=== PATIENT | female | born 1955 | race Two or more races ===

== ENCOUNTER 2024-09-15 10:28 | Emergency (ER) | payer OTHER, SELFPAY ==
[2024-09-15 11:50] VITALS: BP 146/83; PULSE 63; RESP 18; TEMP 36.7; O2SAT 95; BMI 29.5
--- NOTE | 2024-09-15 12:00 | XR_ITS ---
Examination: Lumbar spine 3 views Technique one AP lateral coned lateral lower lumbar spine 3 views Exam date 9: September 15, 2024 1215 hours INDICATIONS: Patient fell 4 days ago with injury to the lower back, lower back pain FINDINGS: Satisfactory alignment lumbar vertebral bodies No lumbar fracture Mild disc narrowing L4-L5 Advanced disc narrowing L5-S1 IMPRESSION: No lumbar fracture
--- NOTE | 2024-09-15 12:00 | XR_ITS ---
Examination: Ribs, right, with PA chest, 5 views Technique: Chest PA, RIBS AP, RPO, LPO, AP coned lower ribs 5 views Exam date and time: September 15, 2024 1207 hours INDICATIONS: Patient fell 4 days ago with injury to the right chest, right rib pain Findings: Mild prominence left ventricle Subsegmental atelectasis left base No pneumothorax Moderate osteopenia Mildly displaced acute fracture right sixth rib anterolaterally IMPRESSION: No pneumothorax Acute fracture right sixth rib
--- NOTE | 2024-09-15 12:00 | XR_ITS ---
Examination: Abdomen AP single view Technique: AP portable supine abdomen, single view Exam date and time: September 15, 1999 25-0 7 hours INDICATIONS: Patient fell 4 days ago with injury of the abdomen, abdomen pain. FINDINGS: Moderate stool throughout the colon No obstruction Lumbar vertebral bodies bones of the pelvis and hips appear intact IMPRESSION: Nonobstructive bowel gas pattern
--- NOTE | 2024-09-15 12:02 | EDRME_ITS ---
Rapid Medical Screening Exam [facility] Arrival date/time: 09/15/24 10:28 Chief Complaint: Fall Vital signs: Vital Signs Temperature 98.1 F 09/15/24 11:50 Pulse Rate 63 09/15/24 11:50 Respiratory Rate 18 09/15/24 11:50 Blood Pressure 146/83 H 09/15/24 11:50 Pulse Oximetry (%) 95 09/15/24 11:50 Oxygen Delivery Method Room Air 09/15/24 11:50 RME Narrative: 69-year-old patient presents emergency department with complaint of right rib, right abdomen, and back pain status post trip and fall 4 days ago. Patient states she tripped over her cat at home. Patient denies head trauma. Patient states pain is worse with deep inspiration
--- NOTE | 2024-09-15 15:08 | EDNOTE_ITS ---
<Statement entered by Yamila Hurt MD - 09/16/24 06:45> As co-signing physician, I was present and available for consult prn. I concur with the plan and care as documented by the midlevel provider. ED Fall Injury RME/HPI General Chief Complaint: Fall Stated Complaint: RIGHT SIDE BODY PAIN S/P FALL 4 DAYS AGO Time Seen by Provider: 09/15/24 14:34 Arrival date/time: 09/15/24 10:28 RME / HPI RME / HPI Narrative: 69-year-old patient presents emergency department with complaint of right rib, right abdomen, and back pain status post trip and fall 4 days ago. Patient states she tripped over her cat at home. Patient denies head trauma. Patient states pain is worse with deep inspiration Fall witnessed: yes, by family Place fall occurred: home Loss of consciousness: none Prolonged down time: no Symptoms prior to fall: none Context: tripped/slipped Location of injury: chest, back and abdomen Severity: moderate Related Data Previous Rx's ?Medication ?Instructions ?Recorded docusate sodium 100 mg capsule 100 mg PO TID #30 caps 09/15/24 ibuprofen 600 mg tablet 600 mg PO Q8H #30 tabs 09/15/24 Allergies Allergy/AdvReac Type Severity Reaction Status Date / Time No Known Allergies Allergy Verified 09/15/24 10:31 Review of Systems Review of Systems Systems Reviewed: All systems reviewed, normal except as documented Constitutional Constitutional: Reports system reviewed and no additional complaints, except as documented Cardiovascular Cardiovascular: Reports system reviewed and no additional complaints, except as documented Gastrointestinal Gastrointestinal: Reports as per HPI Genitourinary Genitourinary: Reports system reviewed and no additional complaints, except as documented Musculoskeletal Musculoskeletal: Reports system reviewed and no additional complaints, except as documented Neurologic Neurologic: Reports system reviewed and no additional complaints, except as documented Psychiatric Psychiatric: Reports system reviewed and no additional complaints, except as documented ED Exam General General appearance: Present alert and in no apparent distress Head Head exam: Present atraumatic and normocephalic Eye Eye exam: Present normal appearance, PERRL and EOMI ENT ENT exam: Present normal exam, normal oropharynx and mucous membranes moist Neck Neck exam: Present normal inspection, full ROM and trachea midline Chest Chest inspection: Present normal inspection Respiratory Respiratory exam: Present normal lung sounds bilaterally Cardiovascular Cardiovascular exam: Present regular rate and normal rhythm Abdominal Exam Abdominal exam: Present soft and tenderness; Absent tenderness at McBurney's Point External exam: Present normal external exam Neurological Exam Neurological exam: Present alert and oriented X3 Psychiatric Psychiatric exam: Present normal affect and normal mood Course Quality Measures none Orders Category Date Time Status XR abdomen 1V Stat Exams 09/15/24 12:00 Completed XR lumbar spine 2-3V Stat Exams 09/15/24 12:00 Completed XR ribs RT min 3V w CXR1V Stat Exams 09/15/24 12:00 Completed HYDROcodone*/APAP 5/325 [[place] 5/325] Med 09/15/24 15:07 Once 1 tab PO X1 ONE Magnesium Citrate Liqd [Citrate of Magnesia Liqd] Med 09/15/24 15:07 Once 300 ml PO X1 ONE Vital Signs Vital signs: Vital Signs Temperature 98.1 F 09/15/24 11:50 Pulse Rate 63 09/15/24 11:50 Respiratory Rate 18 09/15/24 11:50 Blood Pressure 146/83 H 09/15/24 11:50 Pulse Oximetry (%) 95 09/15/24 11:50 Oxygen Delivery Method Room Air 09/15/24 11:50 Fall MDM Narrative MDM Narrative:: 69-year-old patient presents emergency department with complaint of right-sided rib pain and chest pain status post trip and fall pain is worsened with deep inspiration. Patient denies head trauma secondary to the fall. On review of patient's results chest x-ray indicates fracture of the right sixth rib and abdominal x-ray indicates moderate fecal material in colon consistent with constipation patient is stable to be DC'd home Patient data External records reviewed:: None Clinical information provided by:: patient Social determinants that could affect healthcare access:: none Patient has the following chronic illnesses:: na How is presenting disease/condition affected by chronic disease/condition?: no chronic disease Evaluation data The following diagnostics were reviewed and interpreted by me:: radiology exam(s) Lab and/or radiology exams considered but not ordered:: Radiology considered and ordered Interpretation Summary: Rib fracture and constipation Medications / Prescriptions Medications or Prescriptions considered but not ordered:: meds considered and ordered Medication administrations:: Medication Administration History Hydrocodone Bitart/Acetaminophen (Hydrocodone/Apap 5/325 Tablet) 1 tab PO X1 ONE Stop: 09/15/24 15:08 Magnesium Citrate (Magnesium Citrate 300 Ml Btl) 300 ml PO X1 ONE Stop: 09/15/24 15:08 per above Consultations Consultation(s) initiated? (list below): No Diagnosis Fall Differential Diagnosis: syncope, dislocation of shoulder region, fracture of wrist, compression fracture and concussion without loss of consciousness Most likely diagnosis given after review of the tests above:: rib fracture Admission Indicated Admission indicated?: not indicated Admission Request Was there a request for admission?: No Disposition Plan Disposition Plan: Discharge Discharge Attestation Discharge Attestation: The patient and all family members were given an opportunity to ask questions and understood the discharge instructions. Discharge instructions specifically effects, indications for sooner follow up or return to the emergency department, and the expected course of current diagnosis. Patient condition: Stable Discharge Plan Plan Patient Disposition: HOME (Self Care) Prescriptions/Referrals Prescriptions/Med Rec: New ibuprofen 600 mg tablet 600 mg PO Q8H Qty: 30 0RF docusate sodium 100 mg capsule 100 mg PO TID Qty: 30 0RF Referrals: No Primary/Family,Physician [Primary Care Provider] - In 1 week Problem List Clinical Impression: Closed rib fracture, Acute constipation Patient/Caregiver Discharge Instructions Education Materials: Eating a High-Fiber Diet, ED Constipation (Adult), ED Rib Fracture Print Language: Luxem[place] Stand Alone Forms: Molly Award Info., Patient Portal Info Letter
[2024-09-15] MEDS: MAGNESIUM CITRATE 300 ML BTL PO (15:36)
[2024-09-15] MEDS: HYDROcodone/APAP 5/325 TABLET 1 TAB PO (15:36)
== END 2024-09-15 15:44 | disposition home or self-care (01) ==
PROVIDERS: Emergency Provider Emergency Medicine
DX: S22.31XA Fracture of one rib, right side, initial encounter for closed fracture (principal); K59.09 Other constipation; W01.0XXA Fall on same level from slipping, tripping and stumbling without subsequent striking against object, initial encounter
CPT/HCPCS: 71101; 72100; 74018; 99283; A9270

== ENCOUNTER → 2025-03-13 | Outpatient (CLI) | payer OTHER, SELFPAY ==
[2025-03-13 09:52] LABS: Collection Type, Urine Clean Catch
[2025-03-13 10:20] LABS: Basophils # (Auto) 0.1 Thou/mm3 (0.0-0.2); Basophils % (Auto) 1 % (0-2.5); Eosinophils # (Auto) 0.1 Thou/mm3 (0.0-0.5); Eosinophils % (Auto) 3 % (0-10); Immature Granulocytes % (Auto) 0 % (0-0); Immature Granulocytes Auto 0.01 Thou/mm3 (0.00-0.00); Lymphocytes # (Auto) 2.2 Thou/mm3 (1.0-4.8); Lymphocytes % (Auto) 42 % (10-50); Mean Corpuscular HGB Conc 32.5 g/dl (31.0-37.0); Mean Corpuscular Hemoglobin 29.2 pg (25.0-35.0); Mean Corpuscular Volume 90 fL (80-100); Monocytes # (Auto) 0.3 Thou/mm3 (0.0-0.8); Monocytes % (Auto) 5 % (0-12); Neutrophils # (Auto) 2.6 Thou/mm3 (1.8-7.7); Neutrophils % (Auto) 49 % (37-80); Nucleated Red Blood Cell % 0 /100 WBC (0); Platelet Count 252 Thou/mm3 (140-440); RDW Standard Deviation 43.5 fL (36.4-46.3); Red Blood Count 4.45 Miln/mm3 (4.00-5.20); White Blood Count 5.2 Thou/mm3 (3.6-11.0)
[2025-03-13 10:31] LABS: Amorphous Crystals,Urine Present (Absent); Bacteria,Urine Rare; Bilirubin,Urine Negative (Negative); Blood,Urine Negative (Negative); Clarity,Urine Clear (Clear/Hazy); Color,Urine Lt-Yellow (Lt Yel-Yel); Glucose, Urine Negative (Negative); Ketones,Urine Negative (Negative); Leukocyte Esterase,Urine Negative (Negative); Nitrite,Urine Negative (Negative); PH,Urine 5.5 (5.0-7.0); Protein,Urine Negative (Neg - Trace); RBC,Urine 3 /hpf (0-3); Squamous Epithelial Cell,Urine 5 /hpf (0-5); Urobilinogen,Urine Negative mg/dL (0.0-1.0); WBC,Urine 2 /hpf (0-5)
[2025-03-13 10:42] LABS: Alanine Aminotransferase 25 U/L (10-49); Albumin/Globulin Ratio 1.9 (1.2-2.2); Alkaline Phosphatase 87 U/L (46-116); Anion Gap 7 (7-16); Aspartate Amino Transferase 18 U/L (0-34); BUN/Creatinine Ratio 15 Ratio (12-20); Bilirubin,Total 0.4 mg/dL (0.3-1.2); Blood Urea Nitrogen 12 mg/dL (9-23); Carbon Dioxide 28.5 mMol/L (20.0-31.0); Cardiac Risk Estimate 3.9 RATIO (3.7-5.6); Chloride 107 mMol/L (98-107); Cholesterol 236 mg/dL (132-200); Creatinine (Component) 0.8 mg/dL (0.6-1.3); Globulin 2.1 gm/dL (2.3-3.5); Glucose 99 mg/dL (74-106); HDL Cholesterol 61 mg/dL (40-60); LDL Cholesterol,Calculated 160 mg/dL (0-130); Osmolality,Calculated 282 (275-295); Potassium 4.1 mMol/L (3.4-5.1); Sodium 142 mMol/L (136-145); Thyroid Stimulating Hormone 2.83 uIU/mL (0.55-4.78); Total Protein 6.1 gm/dL (5.7-8.2); Triglycerides 74 mg/dL (30-150); eGFR > 60 See Note
== END | disposition home or self-care (01) ==
LOC: COPL 09:10
PROVIDERS: PCP Family Medicine; Referring Provider Family Medicine; Visit Provider Family Medicine
DX: Z00.00 Encounter for general adult medical examination without abnormal findings (principal)
CPT/HCPCS: 36415; 80053; 80061; 81001; 84443; 85025; 87086

== ENCOUNTER → 2025-03-15 | Outpatient (CLI) | payer OTHER, SELFPAY ==
[2025-03-15 14:12] LABS: OBS Performed By LAB; OBS QC OK? Yes
[2025-03-15 15:37] LABS: OBS Developer Expiration Date 121126; OBS Developer Lot # 1-24 551749; Occult Blood, Stool Negative (Negative); Occult Blood, Stool #2 Negative (Negative); Occult Blood, Stool #3 Negative (Negative)
== END | disposition home or self-care (01) ==
LOC: SLDO 13:48
PROVIDERS: Referring Provider Family Medicine; Visit Provider Family Medicine
DX: Z00.00 Encounter for general adult medical examination without abnormal findings (principal)
CPT/HCPCS: 82270

== ENCOUNTER → 2025-04-20 | Outpatient (CLI) | payer OTHER, SELFPAY ==
--- NOTE | 2025-04-20 11:45 | XR_ITS ---
Examination: Screening digital mammography, bilateral Computer aided detection 3-D breast Tomosynthesis, bilateral Date and time of exam: April 20, 2025 1113 hours No priors Indication: Screening Technique: Nonmagnified MLO, CC views of the breasts to been obtained, reconstructed from 3-D Tomosynthesis images. R2 computer aided detection program utilized for evaluation of suspicious masses and/or abnormal calcifications. 3-D Tomosynthesis images obtained. Findings: Scattered areas of fibroglandular density. Benign calcifications. No suspicious masses Impression: BI-RADS category II: Benign Findings. Recommend 1 year follow-up mammogram.
--- NOTE | 2025-04-20 12:00 | XR_ITS ---
Examination: Bone densitometry Date and time of exam:April 20, 2024 at 1134 hours INDICATIONS: Hysterectomy age 34 postmenopausal wrist and foot fracture Levothyroxine 7 years Technique: Lumbar spine and hip total bone mineralization values of an calculated. Peak reference and age match control results have been displayed. Findings: Lumbar spine total bone mineralization is0.742 gm/cm2. This is 2.8 standard deviations below peak reference. This is 0.7 standard deviations below age-matched controls. Hip total bone mineralization is 0.707 gm/cm2 This is 1.9 standard deviations below peak reference. This is 0.4 standard deviations below age-matched controls Impression: There is osteoporosis based on lumbar spine measurements. There is osteoporosis based on hip measurements
== END | disposition home or self-care (01) ==
PROVIDERS: Referring Provider Family Medicine; Visit Provider Family Medicine
DX: Z12.31 Encounter for screening mammogram for malignant neoplasm of breast (principal); R92.323 Mammographic fibroglandular density, bilateral breasts; R92.1 Mammographic calcification found on diagnostic imaging of breast; M81.0 Age-related osteoporosis without current pathological fracture
CPT/HCPCS: 77063; 77067; 77080

== ENCOUNTER → 2025-04-25 | Outpatient (CLI) | payer OTHER, SELFPAY ==
--- NOTE | 2025-04-25 15:05 | XR_ITS ---
Examination: Abdomen AP single view Technique: AP portable supine abdomen, single view Exam date and time: April 25, 2025 1509 hours INDICATIONS: Abdominal pain this month FINDINGS: Air distended small bowel loops in the midabdomen Abundant stool and air throughout the colon No free air Prominent osteopenia IMPRESSION: There are significantly air distended small bowel loops in the midabdomen, consider CT scan abdomen pelvis post intravenous contrast follow-up
[2025-04-25 15:26] LABS: Collection Type, Urine Clean Catch
[2025-04-25 16:38] LABS: Basophils # (Auto) 0.1 Thou/mm3 (0.0-0.2); Basophils % (Auto) 1 % (0-2.5); Eosinophils # (Auto) 0.1 Thou/mm3 (0.0-0.5); Eosinophils % (Auto) 1 % (0-10); Hematocrit 43.9 % (36.0-46.0); Hemoglobin 14.2 g/dL (12.0-16.0); Immature Granulocytes Auto 0.02 Thou/mm3 (0.00-0.00); Lymphocytes # (Auto) 2.4 Thou/mm3 (1.0-4.8); Lymphocytes % (Auto) 32 % (10-50); Mean Corpuscular HGB Conc 32.3 g/dl (31.0-37.0); Mean Corpuscular Hemoglobin 28.6 pg (25.0-35.0); Mean Corpuscular Volume 89 fL (80-100); Monocytes # (Auto) 0.3 Thou/mm3 (0.0-0.8); Monocytes % (Auto) 4 % (0-12); Neutrophils # (Auto) 4.5 Thou/mm3 (1.8-7.7); Neutrophils % (Auto) 61 % (37-80); Nucleated Red Blood Cell # 0.00 Thou/mm3 (0.00-0.00); Nucleated Red Blood Cell % 0 /100 WBC (0); Platelet Count 293 Thou/mm3 (140-440); RDW Standard Deviation 42.6 fL (36.4-46.3); Red Blood Count 4.96 Miln/mm3 (4.00-5.20); White Blood Count 7.5 Thou/mm3 (3.6-11.0)
[2025-04-25 17:00] LABS: Bacteria,Urine Rare; Bilirubin,Urine Negative (Negative); Blood,Urine Trace (Negative); Color,Urine Yellow (Lt Yel-Yel); Glucose, Urine Negative (Negative); Ketones,Urine Negative (Negative); Leukocyte Esterase,Urine Positive (Negative); Nitrite,Urine Negative (Negative); PH,Urine 5.5 (5.0-7.0); Protein,Urine Negative (Neg - Trace); RBC,Urine 5 /hpf (0-3); Specific Gravity,Urine 1.024 (1.001-1.035); Squamous Epithelial Cell,Urine 3 /hpf (0-5); Urobilinogen,Urine Negative mg/dL (0.0-1.0); WBC,Urine 11 /hpf (0-5)
[2025-04-25 17:06] LABS: Alanine Aminotransferase 60 U/L (10-49); Albumin, Serum 4.6 gm/dL (3.4-4.8); Albumin/Globulin Ratio 2.6 (1.2-2.2); Alkaline Phosphatase 87 U/L (46-116); Amylase 53 U/L (30-118); Anion Gap 11 (7-16); Aspartate Amino Transferase 31 U/L (0-34); BUN/Creatinine Ratio 26 Ratio (12-20); Bilirubin,Total 0.4 mg/dL (0.3-1.2); Blood Urea Nitrogen 23 mg/dL (9-23); Calcium 9.7 mg/dL (8.3-10.6); Calcium (Corrected) 9.7 mg/dL (8.5-10.1); Carbon Dioxide 27.9 mMol/L (20.0-31.0); Chloride 104 mMol/L (98-107); Creatinine (Component) 0.9 mg/dL (0.6-1.3); Globulin 1.8 gm/dL (2.3-3.5); Glucose 99 mg/dL (74-106); Lipase 28 U/L (12-53); Osmolality,Calculated 288 (275-295); Potassium 4.4 mMol/L (3.4-5.1); Sodium 143 mMol/L (136-145); Total Protein 6.4 gm/dL (5.7-8.2); eGFR > 60 See Note
[2025-04-25 17:09] LABS: Clarity,Urine Hazy (Clear/Hazy)
== END | disposition home or self-care (01) ==
LOC: CDIM 14:24 → COPL 14:33
PROVIDERS: PCP Family Medicine; Referring Provider Specialist; Visit Provider Radiology Diagnostic Radiology
DX: R10.32 Left lower quadrant pain (principal); R14.0 Abdominal distension (gaseous); R11.0 Nausea
CPT/HCPCS: 36415; 74018; 80053; 81001; 82150; 83690; 85025

== ENCOUNTER → 2025-05-01 | Outpatient (CLI) | payer OTHER, SELFPAY ==
--- NOTE | 2025-05-01 14:13 | XR_ITS ---
Examination: CT abdomen with intravenous contrast CT pelvis with intravenous contrast 2-D coronal reconstructions 2-D sagittal reconstructions Date and time of exam:May 01, 2025 1458 hours INDICATIONS: Epigastric pain and distention beginning 6 months ago. CTDI: vol (mGy) 9.43 DLP: (mGycm) 510 Technique: Multiple axial sections of the abdomen and pelvis have been obtained. 64 slice high-resolution scanner used. 3 mm axial sections have been obtained, post intravenous injection 60 cc [id number] 2-D sagittal, coronal reconstructions obtained. Low dose protocols were performed. One or more of the following dose reduction techniques were used; automated exposure control, adjustment of the mA and/or KV according to patient size, use of iterative reconstruction technique. Findings: Retrocardiac gastric hernia No focal liver or splenic lesions Absent gallbladder Aorta normal size No common bile duct stones No renal or ureteral calculi, no hydronephrosis Small bowel loops mildly fluid distended in the lower abdomen Normal appendix No bowel obstruction Urinary bladder intact Absent uterus No pelvic mass Severe osteopenia IMPRESSION: No common bile duct stones No renal or ureteral calculi Small bowel ileus, no obstruction Normal appendix Given the patient's presentation would still recommend follow-up hepatobiliary sonography
== END | disposition home or self-care (01) ==
LOC: CCTX 13:59
PROVIDERS: PCP Specialist; Referring Provider Specialist; Visit Provider Specialist
DX: K56.7 Ileus, unspecified (principal)
CPT/HCPCS: 74177; A4649; Q9967

== ENCOUNTER 2025-05-08 11:55 | Day surgery (SDC) | payer OTHER, SELFPAY ==
[2025-05-05 14:34] VITALS: BMI 28.3
[2025-05-08] VITALS (9 sets, daily range): BP systolic 126–159; BP diastolic 58–76; PULSE 51–61; RESP 11–19; TEMP 36.8–37.1; O2SAT 91–98; BMI 28.3
[2025-05-08] MEDS: SODIUM CHLORIDE 0.9% 500 ML 500 ML 20 ML IV (13:35)
[2025-05-08] MEDS: BENZOCAINE 20% (Hurricaine) SPRAY 1 DOSE TOP (13:35)
[2025-05-08] MEDS: MIDAZOLAM INJ 1 MG/ML VIAL 2 ML (ASD USE ONLY) 2 MG IVP (13:39)
[2025-05-08] MEDS: fentaNYL CIT INJ 50 mCg/ML AMP 2ML (ASD USE ONLY) IVP (13:40)
== END 2025-05-08 14:40 | disposition home or self-care (01) ==
PROVIDERS: PCP Family Medicine; Referring Provider Specialist; Visit Provider Specialist
PROC: (CPT 43239; principal; 2025-05-08 13:00)
DX: K22.2 Esophageal obstruction (principal); K22.10 Ulcer of esophagus without bleeding; Z98.84 Bariatric surgery status; R94.8 Abnormal results of function studies of other organs and systems
CPT/HCPCS: 43239; 43450; A4649; J1200; J2250; J3010; J7999; A9270

== ENCOUNTER → 2025-05-26 | Outpatient (CLI) | payer OTHER, SELFPAY ==
--- NOTE | 2025-05-26 09:54 | XR_ITS ---
Examination: Video esophagram. Modified Barium Swallow 48 spot fluoroscopic films of the soft tissue lateral neck Fluoroscopy Date and time: May 26, 2025, 1005 hours INDICATIONS: Difficulty swallowing beginning 2 weeks ago TECHNIQUE AND FINDINGS: Barium mixtures administered including thin barium, cracker barium Fluoroscopy 0.4 minute radiation dose 203.03 milligray 48 spot fluoroscopic films of the esophagus No pharyngeal aspiration or penetration No prevertebral or transfer or pooling IMPRESSION: Negative study
== END | disposition home or self-care (01) ==
LOC: SDIM 09:27
PROVIDERS: PCP Family Medicine; Referring Provider Specialist; Visit Provider Specialist
DX: R13.10 Dysphagia, unspecified (principal)
CPT/HCPCS: 74230; A9270

== ENCOUNTER → 2025-05-29 | Outpatient (CLI) | payer OTHER, SELFPAY ==
[2025-05-29 10:09] LABS: Alanine Aminotransferase 22 U/L (10-49); Albumin, Serum 4.0 gm/dL (3.4-4.8); Albumin/Globulin Ratio 2.1 (1.2-2.2); Alkaline Phosphatase 77 U/L (46-116); Anion Gap 10 (7-16); Aspartate Amino Transferase 17 U/L (0-34); BUN/Creatinine Ratio 25 Ratio (12-20); Bilirubin,Total 0.3 mg/dL (0.3-1.2); Blood Urea Nitrogen 20 mg/dL (9-23); Calcium 9.7 mg/dL (8.3-10.6); Calcium (Corrected) 9.7 mg/dL (8.5-10.1); Carbon Dioxide 26.3 mMol/L (20.0-31.0); Cardiac Risk Estimate 4.1 RATIO (3.7-5.6); Chloride 109 mMol/L (98-107); Cholesterol 226 mg/dL (132-200); Creatinine (Component) 0.8 mg/dL (0.6-1.3); Globulin 1.9 gm/dL (2.3-3.5); Glucose 101 mg/dL (74-106); HDL Cholesterol 55 mg/dL (40-60); LDL Cholesterol,Calculated 151 mg/dL (0-130); Osmolality,Calculated 291 (275-295); Potassium 4.1 mMol/L (3.4-5.1); Sodium 145 mMol/L (136-145); Thyroid Stimulating Hormone 2.82 uIU/mL (0.55-4.78); Total Protein 5.9 gm/dL (5.7-8.2); Triglycerides 102 mg/dL (30-150); eGFR > 60 See Note
== END | disposition home or self-care (01) ==
PROVIDERS: PCP Family Medicine; Referring Provider Family Medicine; Visit Provider Family Medicine
DX: E78.2 Mixed hyperlipidemia (principal); E03.9 Hypothyroidism, unspecified
CPT/HCPCS: 36415; 80053; 80061; 84443